=== PATIENT | female | born 1985 | race Caucasian/White ===

== ENCOUNTER 2016-07-17 16:20 | Emergency (ER) | payer OTHER ==
[~2016-07-17] VITALS: Ht 170.2 cm; Wt 67.6 kg
[2016-07-17 12:18] VITALS: BP 112/59
[2016-07-17] MEDS: LACTATED RINGERS 1,000 ML IV SCH (12:20)
[2016-07-17] MEDS: MORPHINE SULFATE 5 MG/ML VIAL IVP PRN (12:44)
[2016-07-17 13:23] LABS: BASOPHILS # (AUTO) 0.1 K/uL (0.00-0.22); EOSINOPHILS # (AUTO) 0.2 K/uL (0-0.4); HEMATOCRIT 36.5 % (36-48); HEMOGLOBIN 12.1 g/dL (12.0-16.0); LYMPHOCYTES # (AUTO) 1.8 K/uL (2.5-16.5); LYMPHOCYTES % (AUTO) 16.4 % (20.5-51.1); MEAN CORPUSCULAR HEMOGLOBIN 30 pg (27-31); MEAN CORPUSCULAR HGB CONC 33 g/dL (33-37); MEAN CORPUSCULAR VOLUME 92 fL (80-94); MONOCYTES # (AUTO) 0.5 K/uL (0.8-1.0); MONOCYTES % (AUTO) 4.6 % (1.7-9.3); NEUTROPHILS # (AUTO) 8.6 K/uL (1.8-7.7); PLATELET COUNT (AUTO) 238 K/uL (140-450); RED BLOOD CELL COUNT(AUTO) 3.96 MIL/uL (4.20-5.40); RED CELL DISTRIBUTION WIDTH 13.5 % (11.6-13.7); WHITE BLOOD COUNT (AUTO) 11.2 K/uL (4.8-10.8)
[2016-07-17 13:33] LABS: ANION GAP 12.2 (8-16); CALCIUM 8.5 mg/dL (8.5-10.1); CARBON DIOXIDE 26.8 mmol/L (21-32); CREATININE 0.4 mg/dL (0.6-1.3)
[2016-07-17 13:38] LABS: ALBUMIN 3.1 g/dL (3.4-5.0); BILIRUBIN,DIRECT 0.1 mg/dL (0.0-0.3); TOTAL BILIRUBIN 0.3 mg/dL (0.0-1.0)
[2016-07-17] MEDS: FAMOTIDINE 20 MG TAB PO SCH (14:00)
[~2016-07-17 16:20] MED LIST: MORPHINE SULFATE 10 MG/ML SYR ONE
[2016-07-17 16:21] VITALS: BP 97/54
--- NOTE | 2016-07-17 16:21 | NUR ---
Patient ambulated to bed 05.
--- NOTE | 2016-07-17 16:22 | NUR ---
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 PT STATES GIVEN MORPHINE IVP IN L&D W/ RELIEF OF PAIN. DENIES N/V/D; SKIN IS PINK/WARM/DRY; AAOX4 WITH EVEN AND STEADY GAIT; LUNGS CLEAR BL; HR EVEN AND REGULAR; PT DENIES ANY FEVER, CP, SOB, OR COUGH AT THIS TIME; PATIENT STATES PAIN OF 5/10 AT THIS TIME; PATIENT POSITIONED FOR COMFORT; HOB ELEVATED; BEDRAILS UP X2; BED DOWN. ER MD MADE AWARE OF PT STATUS.
--- NOTE | 2016-07-17 16:29 | NUR ---
ER MD DR SEPULVEDA EVALUATING PT AT BEDSIDE
--- NOTE | 2016-07-17 16:52 | NUR ---
US at bedside.
[2016-07-17 18:02] VITALS: BP 105/70
--- NOTE | 2016-07-17 18:02 | NUR ---
Patient discharged with v/s stable. Written and verbal after care instructions given and explained. Patient verbalized understanding. Ambulatory with steady gait. All questions addressed prior to discharge. Advised to follow up with PMD.
== END 2016-07-17 18:02 | disposition home or self-care (01) ==
LOC: EDSTATUS 16:20 → MED 16:20
DX: O99.612 Diseases of the digestive system complicating pregnancy, second trimester (principal); K80.20 Calculus of gallbladder without cholecystitis without obstruction; Z3A.24 24 weeks gestation of pregnancy; N13.30 Unspecified hydronephrosis; M54.9 Dorsalgia, unspecified
CPT/HCPCS: 36415; 59025; 76705; 76805; 80048; 80076; 81002; 81025; 83690; 85025; 96361; 96374; 99285; J2270; J7120; Q0092